=== PATIENT | female | born 2000 | race Caucasian/White ===

== ENCOUNTER 2021-10-09 18:08 | Emergency (ER) | payer MEDICAID ==
[~2021-10-09] VITALS: Ht 165.1 cm; Wt 50.0 kg
[2021-10-09] MEDS ORDERED: normal saline 1000ML IV soln IVB ONE (18:20)
[2021-10-09 18:40] LABS: BASOPHILS # (AUTO) 0.1 X10'3 (0-0.2); BASOPHILS % (AUTO) 0.8 % (0-1); EOSINOPHILS % (AUTO) 0.3 % (0-6); HEMOGLOBIN 11.1 g/dl (12.0-16.0); LYMPHOCYTES # (AUTO) 1.5 X10'3 (1.1-4.8); LYMPHOCYTES % (AUTO) 21.9 % (21-51); MEAN CORPUSCULAR HGB CONC 33.5 g/dL (33.0-36.5); MEAN CORPUSCULAR VOLUME 86.6 FL (78-98); MEAN PLATELET VOLUME 8.3 FL (7.4-10.4); MONOCYTES # (AUTO) 0.4 X10'3 (0-0.9); MONOCYTES % (AUTO) 5.8 % (2-12); NEUTROPHILS # (AUTO) 4.7 X10'3 (1.8-7.7); NEUTROPHILS % (AUTO) 71.2 % (42-75); PLATELET COUNT 284 X10'3 (140-440); RED BLOOD COUNT 3.81 X10'6 (4.20-5.60); RED CELL DISTRIBUTION WIDTH 14.2 % (11.5-14.5); WHITE BLOOD COUNT 6.7 X10'3 (4.5-11.0)
[2021-10-09 18:53] LABS: ALANINE AMINOTRANSFERASE 14 U/L (12-78); ALBUMIN 3.2 G/DL (3.4-5.0); ALBUMIN/GLOBULIN RATIO 1.1 (1.1-1.5); ALKALINE PHOSPHATASE 46 IU/L (46-116); ANION GAP 16 (8-16); ASPARTATE AMINO TRANSFERASE 10 U/L (10-37); BILIRUBIN,TOTAL 0.3 MG/DL (0.1-1.0); BLOOD UREA NITROGEN 13 MG/DL (7-18); CALCIUM 8.6 MG/DL (8.5-10.1); CHLORIDE 109 MMOL/L (99-107); CREATININE 0.62 MG/DL (0.40-0.90); GLUCOSE 88 MG/DL (70-104); POTASSIUM 3.7 MMOL/L (3.5-5.1); SODIUM 146 MMOL/L (135-145); TOTAL CARBON DIOXIDE 21.2 MMOL/L (24-32); eGFR > 90 ML/MIN
[2021-10-09 19:02] LABS: ACETAMINOPHEN 48.6 UG/ML (10-30); ETHANOL 0.037 GM/DL (0.0-0.010)
[2021-10-09 19:12] LABS: VALPROATE < 3.0 UG/ML (50-100)
[2021-10-09 19:45] LABS: URINE HCG NEGATIVE (NEG)
[2021-10-09 19:46] LABS: CLARITY,URINE CLEAR (Clear); COLOR,URINE YELLOW (Yellow); GLUCOSE, URINE NEGATIVE (Neg); KETONES,URINE NEGATIVE (Neg); LEUKOCYTE ESTERASE ,URINE NEGATIVE (Neg); NITRITES, URINE NEGATIVE (Neg); OCCULT BLOOD,URINE NEGATIVE (Neg); PH,URINE 6.5 (4.8-8.0); PROTEIN,URINE NEGATIVE (Neg); UROBILINOGEN,URINE 0.2 E.U/dL (0.2-1.0)
[2021-10-09 19:49] LABS: UA COLLECTION TYPE STRAIGHT CATH
[2021-10-09 20:02] LABS: URINE AMPHETAMINE SCREEN NEGATIVE (Neg); URINE BARBITUATE SCREEN NEGATIVE (Neg); URINE BENZODIAZEPINES SCREEN POSITIVE (Neg); URINE CANNABINOID SCREEN POSITIVE (Neg); URINE COCAINE SCREEN NEGATIVE (Neg); URINE METHADONE SCREEN NEGATIVE (Neg); URINE OPIATE SCREEN NEGATIVE (Neg); URINE PHENCYCLIDINE SCREEN NEGATIVE (Neg)
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
--- NOTE | 2021-10-09 21:07 | NUR ---
report given to sai santillan
--- NOTE | 2021-10-09 21:50 | NUR ---
~2150 Pt pulled out her PIV, changed out of green scrubs and left her room to call her so from the waiting room. Pt placed back into room 7. Pt changed back into green scrubs. Monitor cables removed from room. Pt confused, interacting with security with repetative questions.
--- NOTE | 2021-10-09 21:54 | NUR ---
DAVE (PT GIRLFRIEND) PLEASE CALL WHEN YOU CAN WITH UPDATE
--- NOTE | 2021-10-09 22:01 | NUR ---
belongings in locker #25
[2021-10-09] MEDS ORDERED: haloperidol lactate 5mg/ml inj IM ONE ×2 (22:05→23:20)
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
--- NOTE | 2021-10-09 22:54 | NUR ---
Pt pink, alert, shouting at staff. Pt will not follow instructions. Pt remains in physical restraints for her and staff safety.
--- NOTE | 2021-10-09 23:00 | NUR ---
ERP to bedside to evaluate pt.
[2021-10-09] MEDS ORDERED: LORazepam 2 mg/ml vial IM ONE (23:05)
[2021-10-09] MEDS ORDERED: diphenhydrAMINE 50 mg/ml inj IM ONE (23:20)
--- NOTE | 2021-10-09 23:28 | NUR ---
pt medicated as ordered right ventrogluteal. No s/s complication or adverse reaction. Pt carli well. Pt. held in place with two security officers at bedside.
--- NOTE | 2021-10-09 23:32 | NUR ---
Pt offered bedpan to void. Pt declines at this time.
--- NOTE | 2021-10-10 00:14 | NUR ---
Advised ERP pt still pulling on restraints. PIV started ans IVF going. PIV site c/d/i s complication or adverse reaction.
--- NOTE | 2021-10-10 00:29 | NUR ---
Glucose fingerstick 94mg/dl
[2021-10-10] MEDS ORDERED: LORazepam 2 mg/ml vial IV ONE ×2 (00:55→00:58)
[2021-10-10] MEDS ORDERED: normal saline 1000ML IV soln IVB ONE ×2 (01:00)
--- NOTE | 2021-10-10 01:04 | NUR ---
Pt remains combative, unable to communicate her point of her converstations. Pt offered bedpan, pt decliines at this time. Will continue to monitor for acute changes and needs.
--- NOTE | 2021-10-10 01:28 | NUR ---
covered primary rn for break x 30mins.
--- NOTE | 2021-10-10 02:18 | NUR ---
Pt used the bedpan, void ~300cc grossly clear, yellow urine. Pt spilled bedpan. Pt bed linens changed and pt green scrubs changed. PT out of restraints for ROM s any complications or adverse reactions. Will continue to monitor closely for acute changes and needs.
--- NOTE | 2021-10-10 02:30 | NUR ---
Pt pink, no acute/resp distress. PIV site c/d/i s complication or adverse reaction. Will continue to monitor for acute changes and needs.
--- NOTE | 2021-10-10 03:33 | NUR ---
Pt pink, no acute/resp distress. PIV site c/d/i s complication or adverse reaction. Will continue to monitor for acute changes and needs.
--- NOTE | 2021-10-10 05:00 | NUR ---
Pt pink, no acute/resp distress. PIV site c/d/i s complication or adverse rxn.
--- NOTE | 2021-10-10 05:36 | NUR ---
Pt pink, no acute/resp distress. PIV site c/d/i, no s/s infiltration, complication, or adverse reaction. Will continue to monitor pt for acute changes and ongoing needs.
--- NOTE | 2021-10-10 05:56 | NUR ---
Pt pink, no acute/resp distress. PIV site c/d/i s complication or adverse reaction. Report given to Day MCDONNELL.
--- NOTE | 2021-10-10 06:30 | NUR ---
patient wanting to go to the bathroom to void,RN offered bsc instead,pt refused.
--- NOTE | 2021-10-10 06:37 | NUR ---
patient in bed left sided position,eyes closed.respirations regular.
--- NOTE | 2021-10-10 07:20 | NUR ---
PT. TRANSFERRED FROM MAIN ER TO OVERFLOW VIA WHEELCHAIR. PT. PLACED IN BED #20. PT. VISIBLE WITH COVER PULLED OVER HER HEAD. NOTED EVEN RISE AND FALL OF CHEST. THIS AD OPERATIONS INTERN UNABLE TO COMPLETE ASSESSMENT. STAFF WILL OBTAIN INFORMATION FROM ER TRIAGE NOTES AND H/P . PT. SHOWS NO SIGNS OF SELF HARM OR THREAT TO ANYONE ELSE AT THIS TIME. STAFF WILL CONTINUE TO MONITOR FOR SAFETY.
--- NOTE | 2021-10-10 10:26 | NUR ---
PT. RESTING QUIETLY WITH EYES CLOSED NO DISTRESS NOTED.
--- NOTE | 2021-10-10 11:40 | NUR ---
[facility] AT BEDSIDE FOR EVAL.
[2021-10-10] MEDS ORDERED: NO HOME MEDS (16:51)
--- NOTE | 2021-10-10 16:51 | NUR ---
PT. UP AMBULATED TO THE RESTROOM.
--- NOTE | 2021-10-10 18:53 | NUR ---
PATIENT RECEIVED ON THE UNIT IN NO OBVIOUS DISTRESS. NO PHYSICAL COMPLAINT MADE. PATIENT DENIES HAVING ANY SUICIDAL/HOMICIDAL IDEATION. OBSERTVATION ONGOING
--- NOTE | 2021-10-11 00:30 | NUR ---
Pt sleeping at this time, no acute distress noted.
--- NOTE | 2021-10-11 02:45 | NUR ---
Pt sleeping , no distress noted.
--- NOTE | 2021-10-11 05:53 | NUR ---
Pt ambulated to restrom without issue, no acute distress noted.
--- NOTE | 2021-10-11 06:51 | NUR ---
SLEEPING IN BED. NO RESP. DISTRESS NOTED. WILL CONTINUE TO OBSERVE AND ASSIST NEEDED.
--- NOTE | 2021-10-11 08:31 | NUR ---
CALM, COOPERATIVE. EATING BREAKFAST IN BED. WILLCONTINU TO MONITOR AND ASSIST.
--- NOTE | 2021-10-11 10:30 | NUR ---
VISITING WITH PARTNER. VOICED NO COMPLAINTS AT THIS TIME. NO NEGATIVE BEHAVIORS OBSERVED AT THIS TIME. WILL CONTINUE TO MONITOR AND ASSIST NEEDED.
--- NOTE | 2021-10-11 12:30 | NUR ---
IN BED EATING LUNCH. VOICED NO COMPLAINTS AT THIS TIME. WILL CONTINUE TO MONITOR AND ASSIST NEEDED.
--- NOTE | 2021-10-11 14:00 | NUR ---
Patient is pacing back and forth to the restroom. Expressed concerns about discharge. Patient was informed clinician is currently making rounds.
--- NOTE | 2021-10-11 16:02 | NUR ---
Resting in bed quietly. Voiced no complaints at this time. Will continue to monitor and assist at this time.
--- NOTE | 2021-10-11 18:44 | NUR ---
PATIENT RECEIVED ON THE UNIT IN NO OBVIOUS DISTRESS. NO PHYSICAL COMPLAINT MADE. PATIENT DENIES HAVING ANY SUICIDAL/HOMICIDAL IDEATION AT THIS TIME. OBSERVATION ONGOING.
--- NOTE | 2021-10-12 05:41 | NUR ---
PATIENT ASLEEP IN NO OBVIOUS DISTRESS. OBSERVATION ONGOING.
--- NOTE | 2021-10-12 07:00 | NUR ---
Pt is sitting in bed awake, alert and oriented. No acute signs of distress, no complains at this time. Respirations are at ease.
--- NOTE | 2021-10-12 08:15 | NUR ---
Pt has a visitor at bedside.
--- NOTE | 2021-10-12 12:00 | NUR ---
Patient is in room resting quietly in bed watching tv. No acute signs of distress noted no complaints verbalized at this time. Will continue to monitor.
--- NOTE | 2021-10-12 18:30 | NUR ---
PT SITTING CALM AND COVERSING APPROPIATELY WITH VISITOR AT BEDSIDE, NO ACUTE DISTRESS NOTED.
--- NOTE | 2021-10-12 20:45 | NUR ---
PT LAYING IN BED WATCHING TV AT THIS TIME, PT CALM AND COOPERATIVE, PT DENIES SI, NO ACUTE DISTRESS NOTED.
--- NOTE | 2021-10-12 22:47 | NUR ---
Pt ambulated to restroom and back to bed , no acute distress noted.
--- NOTE | 2021-10-13 02:22 | NUR ---
Pt asleep on her right side, no distress noted.
[2021-10-13 05:12] VITALS: BP 111/71
--- NOTE | 2021-10-13 05:19 | NUR ---
Pt sitting up in bed watching tv, no acute distress noted.
--- NOTE | 2021-10-13 08:59 | NUR ---
SITTING IN BED WITH VISITOR (SIG OTHER) AT THE BEDSIDE. PATIENT INQUIRING WHEN SHE WILL BE DISCHARGED TODAY. PATIENT INFORMED THAT SHE WILL BE HAVING MENTAL HEALTH RE-EVALUATION TO DETERMINE IF SHE IS SAFE TO BE DISCHARGED.
== END 2021-10-13 10:26 | disposition home or self-care (01) ==
LOC: ER 18:09
DX: T50.901A Poisoning by unspecified drugs, medicaments and biological substances, accidental (unintentional), initial encounter (principal); R41.82 Altered mental status, unspecified; F10.129 Alcohol abuse with intoxication, unspecified; Y92.89 Other specified places as the place of occurrence of the external cause; Y90.9 Presence of alcohol in blood, level not specified; Z20.822 Contact with and (suspected) exposure to COVID-19
CPT/HCPCS: 36415; 71045; 80053; 80164; 80178; 80305; 80320; 80329; 81003; 81025; 82140; 82948; 84443; 85025; 87635; 93005; 96361; 96372; 96374; 99285; C9803; J1200; J1630; J2060; J7030